=== PATIENT | male | born 1975 | race Caucasian/White ===

== ENCOUNTER 2018-01-04 10:56 | Outpatient (CLI) | payer MEDICARE, MEDICAID ==
[2018-01-04 12:17] LABS: Mean Corpuscular Hemoglobin 29.2 pg (27.0-31.0); Mean Corpuscular Volume 85.7 fL (78.0-98.0); Mean Platelet Volume 6.9 fL (7.4-10.4); Platelet Count 274 thou/uL (130-400); RBC Distribution Width 12.1 % (11.5-14.5); Red Blood Cell (RBC) Count 5.81 mill/uL (4.70-6.10); White Blood Cell (WBC) Count 9.6 thou/uL (4.8-10.8)
[2018-01-04 12:25] LABS: INR-International Normal Ratio 0.9; PTT 32.5 SEC (22.9-36.1); Prothrombin Time 12.6 SEC (12.0-14.7)
[2018-01-04 12:28] LABS: Bilirubin Negative (Negative); Blood, Urine Trace (Negative); Clarity CLOUDY (Clear); Glucose, Urine (Dipstick) Negative (Negative); Leukocyte Large (Negative); Nitrite Negative (Negative); Protein, Urine (Dipstick) Negative (Neg-Trace); Specific Gravity, Urine 1.005 (1.002-1.036)
[2018-01-04 12:31] LABS: Bacteria/HPF 1+ HPF (None Seen); Hyaline Casts/LPF 0-3 HYALINE CAST LPF (0-3 Hyaline); Pathc Cast-AUWi Flag 0.43 (0-2.49); RBC/HPF 0-3 HPF (0-3)
[2018-01-04 12:40] LABS: Anion Gap 18 mmol/L (10-20); BUN (Urea Nitrogen) 12 mg/dL (8.9-20.6); Calc. Creatinine Clearance 0 mL/min (70-130); Calcium 10.1 mg/dL (7.8-10.44); Carbon Dioxide 23 mmol/L (22-29); Chloride 103 mmol/L (98-107); Estimated GFR-MDRD 73; Glucose 84 mg/dL (70-105); Potassium 4.3 mmol/L (3.5-5.1); Sodium 140 mmol/L (136-145)
== END 2018-01-04 10:57 | disposition home or self-care (01) ==
LOC: LABBT 10:56
PROVIDERS: ATTEND Urology
DX: Z01.812 Encounter for preprocedural laboratory examination (principal); N21.0 Calculus in bladder; N21.1 Calculus in urethra
CPT/HCPCS: 80048; 81001; 85027; 85610; 85730; 87077; 87086; 87186

== ENCOUNTER 2018-01-08 06:56 | Day surgery (SDC) | payer MEDICARE, MEDICAID ==
[2018-01-04 11:20] VITALS: BMI 29.0
[2018-01-08] MEDS ORDERED: Iothalamate Meglumine 60% 50 ML VIAL FS ONE (07:22)
[2018-01-08] MEDS ORDERED: Levofloxacin 500 mg/D5W 100 ml Premix Bag ONE (08:59)
[2018-01-08] MEDS ORDERED: Midazolam HCl 2 mg/2 ml Vial ONE (09:27)
[2018-01-08] MEDS ORDERED: Fentanyl 100 MCG/2 ML VIAL ONE (09:39)
--- NOTE | 2018-01-08 11:36 | RAD ---
RETROGRADE IVP: HISTORY: Not provided. EXPOSURE: 15.93 mGy. 0.29 seconds. FINDINGS: A total of 5 images were performed and submitted for interpretation.. Fluoroscopy is provided for Dr Caroline Meeks. Retrograde opacification of normal-appearing intra- and extrarenal collecting systems. IMPRESSION: Fluoroscopy as above. POS: [facility]
--- NOTE | 2018-01-08 12:43 | OP ---
DATE OF PROCEDURE: 01/08/2018 PREOPERATIVE DIAGNOSES: Neurogenic bladder, prostatic urethral stones, and bladder stones. POSTOPERATIVE DIAGNOSES: Neurogenic bladder, prostatic urethral stones, and bladder stones. PROCEDURE PERFORMED: Cysto laser lithotripsy, removal of the prostatic urethra and bladder stones di fficult on the prostatic urethra (bilateral retrograde pyelography). SURGEON: Ar Meeks M.D. ANESTHESIA: General. ESTIMATED BLOOD LOSS: Probably 50 mL DRAINS PLACED: There is 16-[place] Fenton catheter with 10 mL in the balloon and hoh tip catheter. FINDINGS: He had no evidence of stricture disease. He has abnormal prostatic urethra with stones im bedded in it and probably at some point he may have had a wraps, the catheter balloon blown up in his prostatic urethra as he has just a wide prostatic urethra and may be just is anatomy from having a n eurogenic bladder, it may be related to false passages, some problems with catheters in the past. In any event, he had three stones embedded in the wall and going into the urethra. The laser was used to remove one of these and two others were able to be manipulated out with the aid of a laser and the n using a grasping forceps. I could not find any other stones there. He had some small stones in th e bladder that we were able to actually just grasp and remove and Ellik out. He had retrograde studi es done that showed a little J-hooking of the ureters, but no evidence of any obstruction or filling defects along the course of the ureters and both seem to drain well. OPERATIVE TECHNIQUE: After obtaining written and verbal consent from the patient after receiving IV Levaquin, he was taken to the operating suite. He was placed in supine position on treatment table. PlexiPulses were placed on his lower extremities and turned on. He was given a general anesthetic, oral intubation, placed in the dorsal lithotomy position and sterilely prepped and draped. Fluorosco py was also used and we get the camera in good position and took a couple of fluoro shots to make pk e it was in good position, it was. He then underwent cystoscopy with a 22-[place] sheath. This was w ell lubricated and passed under direct vision through the male urethra into the urinary bladder with aid of a video camera and 30-degree lens. The bladder was filled and emptied a number of times and examined with both 30 and 70-degree lens. We then went ahead and removed the prostatic urethral ston es. The first one were able to laser and knocked off the sidewall and removed in pieces. A second o ne were able to grasp and remove intact and the third one is in combination of laser and grasper, we were able to remove that when intact. We then went ahead and reexamined the bladder, taking out the small bladder stones and Ellik out small fragments. We then brought in a 5-[place]er cone tip catheter flushed with contrast. A cafe or restaurant manager KUB was taken. We advanced a couple of centimeters up the left urete r and injected contrast about 8 mL in a retrograde manner. There was no hydro. No filling defects, right side was done the same way and then drainage films were done. At this point, a guidewire was f ed into the bladder. The instruments were removed and a [place] tip catheter was passed over the gu idewire into the bladder and it was inflated with 10 mL, it was draining clear urine. It was hooked up to drainage bag and rectal exam was then done and he has no prostatic abnormality noted on exam an d no rectal lesions. At this point, he was taken out of the dorsal lithotomy position, awakened and extubated and taken by stretcher to the recovery room.
== END 2018-01-08 13:20 | disposition home or self-care (01) ==
LOC: SDC 06:56
PROVIDERS: ATTEND Urology
PROC: 0TCB8ZZ Extirpation of Matter from Bladder, Via Natural or Artificial Opening Endoscopic (ICD-10-PCS; principal; 2018-01-08)
PROC: 0TFD8ZZ Fragmentation in Urethra, Via Natural or Artificial Opening Endoscopic (ICD-10-PCS; 2018-01-08)
DX: N21.0 Calculus in bladder (principal); N21.1 Calculus in urethra; Z88.0 Allergy status to penicillin; Z88.2 Allergy status to sulfonamides
CPT/HCPCS: 52317; 52353; 74420; 82365; 88300; C1758; J1956; J2250; J3010; Q9961

== ENCOUNTER 2019-12-18 06:19 | Outpatient (CLI) | payer MEDICARE, MEDICAID, OTHER ==
[2019-12-18 12:06] LABS: Hemoglobin 16.2 g/dL (14.0-18.0); Mean Corpuscular HGB CONC 32.5 g/dL (32.0-36.0); Mean Corpuscular Hemoglobin 28.7 pg (27.0-31.0); Mean Corpuscular Volume 88.2 fL (78.0-98.0); Mean Platelet Volume 7.8 fL (7.4-10.4); Platelet Count 280 thou/uL (130-400); RBC Distribution Width 12.1 % (11.5-14.5); Red Blood Cell (RBC) Count 5.65 mill/uL (4.70-6.10); White Blood Cell (WBC) Count 10.3 thou/uL (4.8-10.8)
[2019-12-18 12:21] LABS: Anion Gap 12 mmol/L (10-20); BUN (Urea Nitrogen) 12 mg/dL (8.9-20.6); Calc. Creatinine Clearance 0 mL/min (70-130); Calcium 9.8 mg/dL (7.8-10.44); Carbon Dioxide 25 mmol/L (22-29); Chloride 104 mmol/L (98-107); Estimated GFR-MDRD 76; Glucose 83 mg/dL (70-105); Potassium 4.4 mmol/L (3.5-5.1); Sodium 137 mmol/L (136-145)
[2019-12-18 18:32] LABS: SARS-CoV-2 MS2 Positive; SARS-CoV-2 N Gene Negative; SARS-CoV-2 S Gene Negative; SARS-CoV-2 orf1ab Negative
== END 2019-12-18 06:20 | disposition home or self-care (01) ==
LOC: LABBT 06:19
PROVIDERS: ATTEND Urology
DX: Z01.812 Encounter for preprocedural laboratory examination (principal); Z11.59 Encounter for screening for other viral diseases; N21.0 Calculus in bladder
CPT/HCPCS: 80048; 85027; 87086; 87635; U0003

== ENCOUNTER 2019-12-18 11:22 | Outpatient (CLI) | payer MEDICARE, MEDICAID, OTHER ==
--- NOTE | 2019-12-18 13:41 | ULT ---
RENAL ULTRASOUND: 12/18/19 INDICATION: Reflux. Both kidneys have a normal sonographic appearance. No evidence of hydronephrosis. The bladder is mildly contracted and there is bladder wall thickening. There is echogenicity in the b ladder measuring 1.0 to 1.4 cm consistent with a bladder calculus. IMPRESSION: Thickened urinary bladder wall with evidence of a urinary bladder calculus. Renal ultrasound is other lance unremarkable. POS: [facility]
== END 2019-12-18 11:23 | disposition home or self-care (01) ==
LOC: BICULT 11:22
PROVIDERS: ATTEND Urology
DX: N31.1 Reflex neuropathic bladder, not elsewhere classified (principal); N21.0 Calculus in bladder; N32.89 Other specified disorders of bladder
CPT/HCPCS: 76770; 80048; 85027; 87086; U0003; 87635

== ENCOUNTER 2019-12-23 09:52 | Day surgery (SDC) | payer MEDICARE, MEDICAID ==
[2019-12-18 10:01] VITALS: BMI 34.8
[2019-12-23] MEDS ORDERED: Levofloxacin 500 mg/D5W 100 ml Premix Bag ONE (10:24)
[2019-12-23] MEDS ORDERED: Fentanyl 100 MCG/2 ML VIAL ONE (10:56)
[2019-12-23] MEDS ORDERED: Ondansetron PF 4 MG/2 ML Vial ONE (13:09)
[2019-12-23] MEDS ORDERED: PHENYLEPHRINE-NS 100 MCG/ML 10 ML SYRINGE ONE (13:09)
[2019-12-23] MEDS ORDERED: Dexamethasone 20 MG/5 ML VIAL ONE (13:09)
[2019-12-23] MEDS ORDERED: PROPOFOL 200 MG/20 ML VIAL ONE (13:09)
[2019-12-23] MEDS ORDERED: Lidocaine 1% PF 5 ML VIAL ONE (13:09)
--- NOTE | 2019-12-23 14:57 | OP ---
DATE OF PROCEDURE: 12/23/2019 PREOPERATIVE DIAGNOSIS: Bladder stone. POSTOPERATIVE DIAGNOSIS: Bladder, prostatic urethral stone. ANESTHESIA: General. ESTIMATED BLOOD LOSS: 50 to 75 mL. DRAINS PLACED: A 20-[place] tip catheter with about 20 mL in the balloon. PROCEDURE PERFORMED: Cystoscopy; laser lithotripsy of prostatic urethral and bladder stone with retrieval of fragments. DESCRIPTION OF PROCEDURE: Obtained written and verbal consent from the patient, after receiving IV antibiotics, he was taken to the operating suite. He was placed in the supine position on the treatment table. PlexiPulses were placed on the lower extremities and turned on. He was given a general anesthetic and placed in the dorsal lithotomy position, sterilely prepped and draped. Cystoscopy was performed with a 22-[place] sheath, it was passed through the male urethra to the level of the prostatic urethra. The stone was encountered there, appeared to be a stone that probably moved out of his bladder at some point and had been growing in the prostatic urethra as it had grown back into the sulcus on either side of the verumontanum, starting to almost go under the bladder neck on the right side. We went ahead and used a holmium laser fiber to bring up fragmenting the stone and breaking it down a number of the pieces just would washout. We broke it up enough to get the stone into the bladder and then broke this up into smaller and smaller pieces. We Ellik'd out a number of these and grasped some of them with a grasping forceps and removed them. We followed the branches of the prostatic urethra as they moved up towards the bladder neck and a branch of this stone to be underneath the bladder neck on this side. We were able to work this out with a pair of pickups and break it up. At the end of the procedure, there was no evidence of any injury to the bladder. There were no evidence any sizable stone fragments remaining, and instruments were removed. Attempts to pass the Fenton catheter because of his anatomy were unsuccessful, so we repeated the cystoscopy, placed the guidewire and then passed the 20-[place] tip over the guidewire, placing about 20 mL in the balloon. It was hand irrigated, it was clear to light pink. He was taken out of the dorsal lithotomy position, awakened, extubated, and taken by stretcher to the recovery room. Job ID: [id number]
--- NOTE | 2019-12-25 06:01 | PQF ---
[facility] POST DISCHARGE CLINICAL DOCUMENTATION IMPROVEMENT CLARIFICATION FORM l Todays Date: 12/25/19 l Patients Name CLARA LOPEZ l l Admit Date 12/23/19 l Disch Date 12/23/19 Operations Officer Trust Department Name Harmeet Lorenzo Email: Cell: [phone] To be completed by Operations Officer Trust Department: Present Clinical Indicators - Signs / Symptoms Results and Location in Medical Record [ ] Documentation of: [ ] [ ] Documentation of: [ ] [ ] Documentation of: [ ] [ ] Documentation of: [ ] [ ] Risks [ ] [ ] [ ] Treatment [ ] Bladder calculus Query for size (cm) of bladder stone [ ] [ ] To be completed by Physician: KERRY HOWELL The documentation in this patients record requires clarification to ensure coding compliance and accuracy. Check the appropriate box and include in your discharge summary. [ ] [ ] [ ] [ ] Please check this box if this does not apply to this patient [ ] Unable to determine [ ] Other diagnosis: Review the following information and exercise your independent professional judgment in responding to the clarification. Based upon the clinical findings, risk factors, and treatment, please clarify if you are treating one of the above probable or suspected diagnoses. Physician Signature: Date Time MTDD
[2020-01-02 15:15] LABS: Color Brown (.); Mg Ammon Phos 50 % (.); Stone Weight 1449 mg (.)
== END 2019-12-23 14:55 | disposition home or self-care (01) ==
LOC: SDC 09:52
PROVIDERS: ATTEND Urology
DX: N21.0 Calculus in bladder (principal); Q05.9 Spina bifida, unspecified; F17.290 Nicotine dependence, other tobacco product, uncomplicated; Z88.0 Allergy status to penicillin; Z88.2 Allergy status to sulfonamides; Z98.2 Presence of cerebrospinal fluid drainage device
CPT/HCPCS: 82365; 88300; J1100; J1956; J2001; J2405; J2704; J3010

== ENCOUNTER 2021-08-04 12:59 | Outpatient (CLI) | payer MEDICARE, MEDICAID ==
[2021-08-04 14:29] LABS: Hemoglobin 15.2 g/dL (13.5-17.5); Mean Corpuscular HGB CONC 32.1 g/dL (32.0-36.0); Mean Corpuscular Hemoglobin 27.7 pg (27.0-33.0); Mean Corpuscular Volume 86.2 fl (81.2-95.1); Platelet Count 294 10x3/uL (150-450); RBC Distribution Width 12.7 % (11.5-14.5); Red Blood Cell (RBC) Count 5.49 10x6/uL (4.32-5.72); White Blood Cell (WBC) Count 8.2 10x3/uL (3.5-10.5)
[2021-08-04 14:55] LABS: INR-International Normal Ratio 0.9; PTT 29.1 sec (22.0-33.0); Prothrombin Time 10.5 sec (9.5-12.1)
[2021-08-04 15:09] LABS: Anion Gap 14 mmol/L (10-20); BUN (Urea Nitrogen) 12 mg/dL (8.9-20.6); Calc. Creatinine Clearance 0 mL/min (70-130); Calcium 9.6 mg/dL (7.8-10.44); Carbon Dioxide 25 mmol/L (22-29); Chloride 105 mmol/L (98-107); Glucose 79 mg/dL (70-105); Potassium 4.3 mmol/L (3.5-5.1); Sodium 140 mmol/L (136-145)
[2021-08-04 23:50] LABS: SARS-CoV-2 PCR by NAA Not Detected (NotDetected)
== END 2021-08-04 13:00 | disposition home or self-care (01) ==
LOC: LABBT 12:59
PROVIDERS: ATTEND Urology
DX: Z01.812 Encounter for preprocedural laboratory examination (principal); N21.0 Calculus in bladder; Z20.822 Contact with and (suspected) exposure to COVID-19
CPT/HCPCS: 80048; 85027; 85610; 85730; 87086; U0003; U0005

== ENCOUNTER 2021-08-09 09:00 | Day surgery (SDC) | payer MEDICARE, MEDICAID ==
[2021-07-29 11:40] VITALS: BMI 34.4
[2021-08-09] MEDS ORDERED: Levofloxacin 500 mg/D5W 100 ml Premix Bag ONE (10:30)
[2021-08-09] MEDS ORDERED: Fentanyl 100 MCG/2 ML VIAL ONE (11:35)
[2021-08-09] MEDS ORDERED: Famotidine/PF 20 mg/2ml Vial ONE (11:35)
[2021-08-09] MEDS ORDERED: Iothalamate Meglumine 60% 50 ML VIAL FS ONE (11:38)
[2021-08-09] MEDS ORDERED: Vancomycin 1 GM/200 ML BAG ONE (11:45)
[2021-08-09] MEDS ORDERED: Ondansetron PF 4 MG/2 ML Vial ONE (11:50)
[2021-08-09] MEDS ORDERED: ePHEDrine 50 MG/ML VIAL ONE (11:50)
[2021-08-09] MEDS ORDERED: PHENYLEPHRINE-NS 100 MCG/ML 10 ML SYRINGE ONE (11:50)
[2021-08-09] MEDS ORDERED: PROPOFOL 200 MG/20 ML VIAL ONE (11:50)
[2021-08-09] MEDS ORDERED: Lidocaine 1% PF 5 ML VIAL ONE (11:50)
[2021-08-09] MEDS ORDERED: Metoclopramide HCl 10 MG/2 ML VIAL ONE (11:50)
[2021-08-16 17:38] LABS: Color Tan (.); Mg Ammon Phos 40 % (.); Stone Weight 436 mg (.)
== END 2021-08-09 15:20 | disposition home or self-care (01) ==
LOC: SDC 09:00
PROVIDERS: ATTEND Urology
PROC: 0TCD8ZZ Extirpation of Matter from Urethra, Via Natural or Artificial Opening Endoscopic (ICD-10-PCS; principal; 2021-08-09)
PROC: 0TBB8ZX Excision of Bladder, Via Natural or Artificial Opening Endoscopic, Diagnostic (ICD-10-PCS; 2021-08-09)
DX: N21.1 Calculus in urethra (principal); N32.89 Other specified disorders of bladder; N30.20 Other chronic cystitis without hematuria; N31.9 Neuromuscular dysfunction of bladder, unspecified; F17.290 Nicotine dependence, other tobacco product, uncomplicated; Z88.0 Allergy status to penicillin; Z88.2 Allergy status to sulfonamides; Z98.2 Presence of cerebrospinal fluid drainage device
CPT/HCPCS: 74420; 82365; 88300; 88305; J1956; J2405; J2704; J2765; J3010; J3370; J3490; Q9961-U8; S0028